=== PATIENT | female | born 1940 | race Caucasian/White ===

== ENCOUNTER 2018-04-12 16:33 | Emergency (ER) | payer MEDICARE, BC ==
[2018-04-12 16:48] VITALS: BP 159/70
--- NOTE | 2018-04-12 20:02 | EDM.PDOC ---
ED HPI GENERAL MEDICAL PROBLEM - General Chief Complaint: Neurological Problem Stated Complaint: DIZZY X 1 WEEK Time Seen by Provider: 04/12/18 18:53 Source of Information: Reports: Patient, Family History Limitations: Reports: No Limitations - History of Present Illness INITIAL COMMENTS - FREE TEXT/NARRATIVE: The patient presents from the [facility] in clinic for dizziness. She says this has been going on for about a week. She says when she gets up from sitting or laying down it is the worst. She says she is off balance and it does not feel like she is going to pass out. She has no other symptoms such as headache, ear pain, hearing loss, tinnitus, chest pain, shortness of breath, abdominal pain, nausea or vomiting. She saw her ui ux developer on the 2nd of this month and her blood pressures have been running high so they changed her from cardizem to amlodipine. She went to the [facility] in clinic and they sent her here for further work up. Onset: Gradual Duration: Week(s): (1) Severity: Moderate Improves with: Reports: Immobilization Worsens with: Reports: Movement Associated Symptoms: Reports: No Other Symptoms Right Back Pain Score (Numeric/FACES): 3 - Related Data Allergies Allergy/AdvReac Type Severity Reaction Status Date / Time HERMAN Inhibitors Allergy Cannot Verified 08/27/15 00:21 Remember ciprofloxacin Allergy Cannot Verified 08/27/15 00:21 Remember glipizide [From Glucotrol] Allergy Cannot Verified 08/27/15 00:21 Remember sitagliptin phosphate Allergy Cannot Verified 08/27/15 00:21 [From Januvia] Remember Home Meds: Home Meds Aspirin [Sharifa Chewable Aspirin] 81 mg PO DAILY 08/27/15 [History] Cetirizine [ZyrTEC] 10 mg PO DAILY 08/27/15 [History] Cyanocobalamin (Vitamin B-12) [Vitamin B-12] 1,000 mcg PO DAILY 08/27/15 [ History] Diltiazem [Dilacor XR] 420 mg PO DAILY 08/27/15 [History] EPINEPHrine [Epipen 2-Jarocho] 0.3 mg IJ ASDIRECTED PRN #2 unit 08/27/15 [Rx] Hydrochlorothiazide 25 mg PO DAILY 08/27/15 [History] Insulin Aspart [Novolog Flexpen] 10 units SUBCUT BID 08/27/15 [History] Insulin Glarg,Human.Rec.Analog [LantUS Solostar] 40 units SUBCUT BID 08/27/15 [ History] Levothyroxine Sodium [Synthroid] 25 mcg PO TUTHSA 08/27/15 [History] Levothyroxine Sodium [Synthroid] 50 mcg PO MOWEFR 08/27/15 [History] Magnesium Oxide 400 mg PO DAILY 08/27/15 [History] Metoprolol Tartrate [Lopressor] 50 mg PO BID 08/27/15 [History] Potassium Chloride [Klor-Con] 20 meq PO BID 08/27/15 [History] Ranitidine [Zantac] 150 mg PO BID #10 tab 08/27/15 [Rx] Sertraline [Zoloft] 50 mg PO DAILY 08/27/15 [History] Simvastatin [Zocor] 10 mg PO DAILY 08/27/15 [History] diphenhydrAMINE [Benadryl] 50 mg PO Q6HR PRN #50 cap 08/27/15 [Rx] hydrOXYzine HCl [hydrOXYzine] 10 mg PO QID PRN 08/27/15 [History] predniSONE [Prednisone] 50 mg PO DAILY #4 tablet 08/27/15 [Rx] Meclizine [Antivert] 25 mg PO Q6H PRN #30 tab 04/12/18 [Rx] Past Medical History Cardiovascular History: Reports: High Cholesterol, Hypertension Psychiatric History: Reports: Depression Endocrine/Metabolic History: Reports: Diabetes, Type II, Hypothyroidism - Past Surgical History GI Surgical History: Reports: Cholecystectomy Other Musculoskeletal Surgeries/Procedures:: ORIF left ankle Social & Family History - Tobacco Use Smoking Status *Q: Never Smoker - Caffeine Use Caffeine Use: Reports: Coffee, Soda - Recreational Drug Use Recreational Drug Use: No ED ROS GENERAL - Review of Systems Review Of Systems: See Below Constitutional: Reports: No Symptoms HEENT: Reports: No Symptoms Respiratory: Reports: No Symptoms Cardiovascular: Reports: No Symptoms Endocrine: Reports: No Symptoms GI/Abdominal: Reports: No Symptoms : Reports: No Symptoms Musculoskeletal: Reports: No Symptoms Skin: Reports: No Symptoms Neurological: Reports: Dizziness ED EXAM, NEURO - Physical Exam Exam: See Below Exam Limited By: No Limitations General Appearance: Alert, No Apparent Distress Ears: Normal External Exam, Normal Canal, Normal TMs Nose: Normal Inspection Head Exam: Atraumatic, Normocephalic Neck: Normal Inspection Respiratory/Chest: No Respiratory Distress, Lungs Clear, Normal Breath Sounds Cardiovascular: Regular Rate, Rhythm, No Edema, No Murmur GI/Abdominal: Soft, Non-Tender, No Organomegaly, No Mass Neurological: Alert, No Motor/Sensory Deficits, Oriented x 3 EKG INTERPRETATION EKG Date: 04/12/18 Time: 17:05 Rhythm: Other (Sinus bradycardia) Rate (Beats/Min): 54 Odin: Normal P-Wave: Present QRS: Normal ST-T: Other (Flattened T waves in the anterir leads) QT: Normal Course - Vital Signs Last Recorded V/S: Last Vital Signs Temp 98.6 F 04/12/18 16:47 Pulse 58 L 04/12/18 16:47 Resp 20 04/12/18 16:47 BP 159/70 H 04/12/18 16:47 Pulse Ox 96 04/12/18 16:47 Orthostatic Blood Pressure [ 172/80 Standing] Orthostatic Blood Pressure [ 177/70 Sitting] Orthostatic Blood Pressure [ 160/78 Supine] - Orders/Labs/Meds Orders: Active Orders 24 hr Category Date Time Status Cardiac Monitoring [RC] . DIRECTED Care 04/12/18 19:00 Active EKG Documentation Completion [RC] STAT Care 04/12/18 17:04 Active Orthostatic Vital Signs [RC] ASDIRECTED Care 04/12/18 19:01 Active Head wo Cont [CT] Stat Exams 04/12/18 19:01 Taken Labs: Laboratory Tests 04/12/18 04/12/18 Range/Units 19:20 19:20 WBC 6.55 (3.98-10.04) K/mm3 RBC 4.62 (3.98-5.22) M/mm3 Hgb 13.4 (11.2-15.7) gm/L Hct 41.9 (34.1-44.9) % MCV 90.7 (79.4-94.8) fl MCH 29.0 (25.6-32.2) pg MCHC 32.0 L (32.2-35.5) g/dl RDW Std Deviation 46.2 (36.4-46.3) fL Plt Count 163 L (182-369) K/mm3 MPV 10.6 (9.4-12.3) fl Neut % (Auto) 61.8 (34.0-71.1) % Lymph % (Auto) 26.6 (19.3-51.7) % [place] % (Auto) 7.2 (4.7-12.5) % Eos % (Auto) 3.7 (0.7-5.8) Baso % (Auto) 0.5 (0.1-1.2) % Neut # (Auto) 4.06 (1.56-6.13) K/mm3 Lymph # (Auto) 1.74 (1.18-3.74) K/mm3 [place] # (Auto) 0.47 H (0.24-0.36) K/mm3 Eos # (Auto) 0.24 (0.04-0.36) K/mm3 Baso # (Auto) 0.03 (0.01-0.08) K/mm3 Sodium 142 (136-145) mEq/L Potassium 3.7 (3.5-5.1) mEq/L Chloride 106 (98-107) mEq/L Carbon Dioxide 30 (21-32) mEq/L Anion Gap 9.7 (5-15) BUN 12 (7-18) mg/dL Creatinine 1.0 (0.55-1.02) mg/dL Est Cr Clr Drug Dosing 38.44 mL/min Estimated GFR (MDRD) 54 (>60) mL/min BUN/Creatinine Ratio 12.0 L (14-18) Glucose 119 H (83-115) mg/dL Calcium 8.9 (8.5-10.1) mg/dL Total Bilirubin 0.4 (0.2-1.0) mg/dL AST 15 (15-37) U/L ALT 20 (14-59) U/L Alkaline Phosphatase 123 H (46-116) U/L Troponin I < 0.017 (0.00-0.056) ng/mL Total Protein 7.6 (6.4-8.2) g/dl Albumin 3.6 (3.4-5.0) g/dl Globulin 4.0 gm/dL Albumin/Globulin Ratio 0.9 L (1-2) - Re-Assessments/Exams Free Text/Narrative Re-Assessment/Exam: 04/12/18 20:02 I ordered an EKG, labs, CT of her head and orthostatic vitals. Her EKG shows a sinus bradycardia with no acute changes. 04/12/18 20:03 Her orthostatic vitals look good. Her CBC and CMP look good. I am waiting for her CT results. 04/12/18 20:[address] looks good. I feel this could be vertigo. I will have her try some antivert and I will refer her to Dr Evans our cooler supervisor to do a vertigo assessment. Departure - Departure Time of Disposition: 20:20 Disposition: Home, Self-Care 01 Condition: Good Clinical Impression: Vertigo - Discharge Information Prescriptions: Meclizine [Antivert] 25 mg PO Q6H PRN #30 tab PRN Reason: Dizziness Referrals: Bing Cortes MD [Primary Care Provider] - 1 Week Keyur Evans MD [Physician] - 1 Week Forms: ED Department Discharge Additional Instructions: Take your other medication as prescribed. Take the antivert every 6 hours as needed for dizziness. Keep waiting on the edge of the bed and chair for the dizziness to get better before you get up to avoid falling. Call Dr Evans's office on Sunday and try to get in to see him early next week. Follow up with Dr Cortes. Please return if you are worse. - My Orders Last 24 Hours: My Active Orders 04/12/18 17:04 EKG Documentation Completion [RC] STAT 04/12/18 19:00 Cardiac Monitoring [RC] . DIRECTED 04/12/18 19:01 Orthostatic Vital Signs [RC] ASDIRECTED Head wo Cont [CT] Stat - Assessment/Plan Last 24 Hours: My Active Orders 04/12/18 17:04 EKG Documentation Completion [RC] STAT 04/12/18 19:00 Cardiac Monitoring [RC] . DIRECTED 04/12/18 19:01 Orthostatic Vital Signs [RC] ASDIRECTED Head wo Cont [CT] Stat
--- NOTE | 2018-04-15 11:15 | CT ---
Head CT Technique: Multiple axial sections to the brain were obtained. Intravenous contrast was not utilized. Comparison: No prior intracranial imaging. Findings: Ventricles along the basal cisterns and sulci over the convexities are mildly prominent. No abnormal parenchymal densities are seen. No evidence of intracranial hemorrhage. No midline shift or mass effect is seen. Bone window settings were reviewed which show no acute calvarial abnormality. Opacified right frontal sinus is seen. Other visualized sinuses are clear. Impression: 1. 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 2. Mild generalized atrophy. 3. No acute intracranial abnormality is identified. Diagnostic code #2 I agree with preliminary report from [facility], finalized at 04/12/18, 9:06 PM Central Time
== END 2018-04-12 20:35 | disposition home or self-care (01) ==
LOC: JD.ED 16:33
DX: R42 Dizziness and giddiness (principal); E78.00 Pure hypercholesterolemia, unspecified; I10 Essential (primary) hypertension; E11.9 Type 2 diabetes mellitus without complications; E03.9 Hypothyroidism, unspecified; Z88.1 Allergy status to other antibiotic agents; Z88.8 Allergy status to other drugs, medicaments and biological substances; Z79.82 Long term (current) use of aspirin; Z79.899 Other long term (current) drug therapy; Z79.4 Long term (current) use of insulin
CPT/HCPCS: 36415; 70450; 70450-26; 80053; 84484; 85025; 93005; 99285-25